=== PATIENT | female | born 1990 | race Caucasian/White ===

== ENCOUNTER 2022-04-21 23:24 | Emergency (ER) | payer BC, SELFPAY ==
[2022-04-21 23:41] VITALS: BP 145/81; PULSE 88; RESP 16; TEMP 36.1; O2SAT 95
--- NOTE | 2022-04-22 01:24 | PC.NURSE ---
No answer when called for ED room assignment.
--- NOTE | 2022-04-22 01:36 | PC.NURSE ---
No answer x 2 when called for ED room assignment. Not present in wr.
== END 2022-04-22 01:37 | disposition left against medical advice (07) ==
DX: R10.31 Right lower quadrant pain (principal)
CPT/HCPCS: 99199

== ENCOUNTER 2022-04-22 07:13 | Day surgery (SDC) | payer OTHER, SELFPAY ==
[2022-04-22] VITALS (10 sets, daily range): BP systolic 94–120; BP diastolic 45–85; PULSE 85–110; RESP 16–20; TEMP 36.9–37.1; O2SAT 94–99
--- NOTE | ~2022-04-22 | CT_ITS ---
EXAMINATION: CT abdomen pelvis w con INDICATION: Right-sided abdominal pain TECHNIQUE: Computed tomographic images of the abdomen and pelvis were obtained after the administrati on of 100 cc of Omnipaque 350 intravenous contrast. The dose-length product (DLP) was 342.08 mGy-cm. Automated exposure control and iterative reconstruction technique were employed. COMPARISON: None available FINDINGS: The lung bases are clear. The heart size is normal. The liver, spleen, pancreas, gallbladde r, and adrenal glands are normal. Hypoattenuating lesions of the left kidney measuring up to 4 mm are too small to characterize but likely represent cysts. The right kidney is unremarkable. There is an appendicolith at the base of the dilated appendix which measures up to 13 mm. There are mild edematou s stranding of the periappendiceal fat. No pathologically enlarged abdominal or pelvic lymph nodes ar e identified. There is no free intraperitoneal gas or evidence of bowel obstruction. IMPRESSION: 1. Acute appendicitis. Reviewed, dictated and finalized at location A. IMPRESSION: 1. Acute appendicitis.
--- NOTE | 2022-04-22 07:42 | ED.ABDPAIN ---
HPI - Abdominal Pain General Chief Complaint: Abdominal Pain Stated Complaint: Right Side ABD Pain Time Seen by Provider: 04/22/22 07:25 History of Present Illness HPI narrative: Patient with history of anxiety states that since yesterday she has been having some pain in her right abdomen, is gotten worse today. No nausea or vomiting, she did have some very mild diarrhea but she is not sure if that was due to anxiety. No history of any issues with her gallbladder or appendix in the past. No fevers noted. No one else sick at home. Related Data Home Medications Medication Instructions Recorded Confirmed fluoxetine 20 mg capsule (Prozac) 20 mg PO DAILY 04/22/22 Allergies Allergy/AdvReac Type Severity Reaction Status Date / Time No Known Allergies Allergy Unverified 12/25/14 11:18 Review of Systems Review of Systems: CONST: No fever. HEENT: No sore throat C/V: No chest pain RESP: No cough GI: Reports abdominal pain : No dysuria. M/S: No joint pain. SKIN: No rash. NEURO: [No headache or focal numbness or weakness] PSYCH: [No depression] [facility] Past Medical History Medical History (Updated 04/22/22 @ 13:42 by Lola Montalvo MD) Anxiety Surgical History Surgical History (Updated 04/22/22 @ 07:43 by Lola Montalvo MD) No significant past surgical history Exam Narrative: EXAMINATION OF ORGAN SYSTEMS/BODY AREAS: Constitutional: Vital signs per nursing GENERAL: Appears slightly anxious HEAD: Normal with no signs of head trauma. EYES: EOMI, conjunctiva normal ENT: Hearing grossly intact LUNGS: Nonlabored breathing. HEART: [Regular rate and rhythm] ABD: [Soft], very minimally [tender to palpation to right upper quadrant, even less tender to right lower quadrant] EXT: Normal range of motion SKIN: [No rashes or lesions.] NEURO: [Alert and oriented x 3. No gross focal sensory or strength deficits.] PSYCH: Normal affect Course Vital Signs Vital signs: Vital Signs Temperature 98.5 F 04/22/22 07:25 Pulse Rate 110 H 04/22/22 07:25 Respiratory Rate 16 04/22/22 07:25 Blood Pressure 120/85 04/22/22 07:25 Pulse Oximetry 97 04/22/22 07:25 Oxygen Delivery Room Air 04/22/22 07:25 Temperature 98.8 F 04/22/22 11:54 Pulse Rate 98 04/22/22 13:15 Respiratory Rate 20 04/22/22 13:15 Blood Pressure 97/60 L 04/22/22 13:15 Pulse Oximetry 94 04/22/22 12:50 Oxygen Delivery Room Air 04/22/22 13:15 Oxygen Flow Rate 8 04/22/22 12:20 MDM - Abdominal Pain MDM Narrative Medical decision making narrative: Electronic medical record was reviewed. Patient presented to the ED with complaint of right mid abdominal pain. Vitals notable for tachycardia. Physical exam revealed soft abdomen with some tenderness to the right side. Based on the patient's history and physical exam, my differential includes but is not limited to [gastritis, gastroenteritis, cholecystitis, pancreatitis, appendicitis]. [IV access was established by nursing staff. Patient was given morphine]. CBC, BMP, lipase, LFTs, bilirubin and alk phos were obtained. Labs were pertinent for elevated white count. [Decision was made to obtain a CT-abdomen to evaluate for acute abdominal process. CT-abdomen shows acute appendicitis]. D/w pt, general surgeon, started on abx and made NPO. Going to OR. Lab Data Result diagrams: 04/22/22 07:38 04/22/22 07:38 Labs: Lab Results 04/22/22 04/22/22 04/22/22 Range/Units 07:38 07:38 07:38 WBC 11.7 H (4.5-10.0) K/mm3 RBC 5.43 H (4.2-5.4) M/mm3 Hgb 14.8 (12.0-15.0) g/dL Hct 43.2 (37.0-47.0) % MCV 79.6 L (80-100) fl MCH 27.3 (26-34) pg MCHC 34.3 (32-36) g/dl RDW 13.5 (11.5-14.5) % Plt Count 285 (150-375) k/mm3 MPV 8.9 (7.4-10.4) fl Immature Gran % (Auto) 0.3 (0-0.5) % Neut % (Auto) 77.5 H (45.5-73.1) % Lymph % (Auto) 14.4 L (18.3-44.2) % [place] % (Auto) 7.4 (2.6-8.5) % Eos % (Auto
[2022-04-22] MEDS: MORPHINE SULFATE (*CRX) 4 MG/ML INJ 2 MG IV PUSH (07:45)
[2022-04-22 07:47] LABS: Basophils Percent Auto 0.2 % (0.2-1.2); Eosinophils Percent Auto 0.2 % (0-4.4); Hematocrit 43.2 % (37.0-47.0); Hemoglobin 14.8 g/dL (12.0-15.0); Immature Granulocyte Absolute 0.04 K/mm3 (0.00-0.031); Immature Granulocyte Percent A 0.3 % (0-0.5); Lymphocytes Absolute Auto 1.68 K/mm3 (0.9-3.2); Lymphocytes Percent Auto 14.4 % (18.3-44.2); Mean Corpuscular HGB Conc 34.3 g/dl (32-36); Mean Corpuscular Hemoglobin 27.3 pg (26-34); Mean Corpuscular Volume 79.6 fl (80-100); Mean Platelet Volume 8.9 fl (7.4-10.4); Monocytes Absolute Auto 0.9 K/mm3 (0.1-0.6); Monocytes Percent Auto 7.4 % (2.6-8.5); Neutrophils Absolute Auto 9.1 K/mm3 (1.3-6.7); Neutrophils Percent Auto 77.5 % (45.5-73.1); Platelet Count Result 285 k/mm3 (150-375); Red Blood Count 5.43 M/mm3 (4.2-5.4); Red Cell Distribution Width 13.5 % (11.5-14.5); White Blood Count 11.7 K/mm3 (4.5-10.0)
[2022-04-22 07:54] LABS: Add Urine Microscopic? YES; Appearance Urine Clear (Clear); Bacteria Urine Trace /hpf; Bilirubin Urine Negative (Negative); Blood Urine 3+ (Negative); Color Urine Yellow (Yellow); Glucose Urine UA Negative (Negative); Ketones Urine 2+ mg/dL (Negative); Leukocyte Esterase Ur Negative LEU/UL (Negative); Mucus Urine Few /lpf; Nitrate Urine Negative (Negative); Protein Urine 1+ mg/dL (Negative); Squamous Epithelial Cell Urine Occasional /hpf (Few); Urobilinogen Urine Negative mg/dL (<2.0); WBC Urine 0-3 /hpf
[2022-04-22 07:58] LABS: Alanine Aminotransferase 23 U/L (6-35); Albumin Level 5.2 g/dL (3.5-5.1); Alkaline Phosphatase 112 U/L (38-126); Anion Gap 16 mmol/L (8-16); Aspartate Amino Transferase 28 U/L (14-36); Bilirubin,Total 1.3 mg/dL (0.2-1.3); Blood Urea Nitrogen 11 mg/dL (7-17); Calcium 9.6 mg/dL (8.4-10.2); Carbon Dioxide 23 mmol/L (22-30); Chloride 98 mmol/L (98-107); Estimated CRCL calculation 62 ml/min; Estimated Glomerular Filt Rate > 60; Glucose 116 mg/dL (65-110); Lipase 45 U/L (23-300); Potassium 3.7 mmol/L (3.4-5.0); Sodium 137 mmol/L (137-145)
[2022-04-22] MEDS: LACTATED RINGERS 1,000 ML 999 ML IV CONT (09:17)
[2022-04-22] MEDS: metroNIDAZOLE 500 MG/ISO 100ML 500 MG/100 ML BAG 100 MG IVPB (09:52)
--- NOTE | 2022-04-22 10:16 | PM.SD2 ---
Same Day Admit/Disch: HPI History of Present Illness Chief complaint: Right Side ABD Pain Narrative: Ivette Torres is a 31 year old female who began having abdominal pain yesterday. Pain got worse and moved to the right lower quadrant. It was pretty severe and she decided to come to the emergency room. She was noted to have an elevated white count and tenderness both in the right upper quadrant and in the right lower quadrant. CT scan of the abdomen pelvis showed a 1.3 cm appendix that was associated with periappendiceal stranding and had a proximal appendicoliths. Patient seen now for management of her right lower quadrant pain and abnormal findings on CT scan. [facility] Past Medical History Medical History (Updated 04/22/22 @ 10:24 by Kyle Levine MD) Anxiety Surgical History Surgical History (Updated 04/22/22 @ 07:43 by Lola Montalvo MD) No significant past surgical history Same Day Admit/Disch: Med Pre-admit Medications Home Medications Medication Instructions Recorded Confirmed Type fluoxetine 20 mg capsule (Prozac) 20 mg PO DAILY 04/22/22 History hydrocodone 5 mg-acetaminophen 325 1 - 2 tablet PO Q6H PRN pain #7 04/22/22 Rx mg tablet tabs ketorolac 10 mg tablet 10 mg PO Q6H 4 days #16 tabs 04/22/22 Rx Exam Const: General: comfortable, no acute distress, alert and awake HENMT: Head: normocephalic and atraumatic Mouth: Yes Normal oral and palatal mucosa present Eyes: Conjunctivae: conjunctivae normal Pupils: Equal, round and reactive pupils present EOM: EOMs intact bilaterally Neck: Neck: normal visual inspection, no lymphadenopathy and nontender Resp: Effort & Inspection: normal respiratory effort Auscultation: clear to auscultation bilaterally Cardio: Rate: regular rate Rhythm: regular rhythm Heart sounds: no gallops, no murmurs and no rubs GI: Inspection: normal to inspection, non-distended, scaphoid and no visible herniation GI Palp: Yes Soft to palpation, Yes Tenderness to palpation present (GI) (Right side of the abdomen mostly right lower quadrant with guarding), Yes Guarding due to palpation present (GI), No Hepatomegaly present, No Splenomegaly present, No Hernia present, No Palpable mass present and No Ascites present Auscultation: normal bowel sounds Skin: General skin exam: other (hirsuit) Lesions: no lesions Rashes: no rashes Neuro: General: no focal motor deficits and CN's II-XI intact bilaterally Cranial nerves: Yes Equal, round and reactive pupils present, Yes Bilaterally intact EOM present, Yes facial symmetry and Yes Midline tongue present Speech: normal speech Motor exam (neuro): 5/5 motor strength present throughout and Motor abnormalities not present Extrem: General: no clubbing, cyanosis or edema and edema Psych: Affect: normal affect Thought process: Normal thought process present Insight: Good insight present (Psych) DS: Data Data Completed and Pending Labs on day of discharge: Labs from last 24 hours 04/22/22 04/22/22 04/22/22 07:38 07:38 07:38 WBC 11.7 H RBC 5.43 H Hgb 14.8 Hct 43.2 MCV 79.6 L MCH 27.3 MCHC 34.3 RDW 13.5 Plt Count 285 MPV 8.9 Immature Gran % (Auto) 0.3 Neut % (Auto) 77.5 H Lymph % (Auto) 14.4 L [place] % (Auto) 7.4 Eos % (Auto) 0.2 Baso % (Auto) 0.2 Lymph # (Auto) 1.68 [place] # (Auto) 0.9 H Eos # (Auto) 0.0 Baso # (Auto) 0.0 Abs Immat Gran (auto) 0.04 H Absolute Neuts (auto) 9.1 H Absolute Nucleated RBC 0.0 Nucleated RBC % 0.0 Sodium 137 Potassium 3.7 Chloride 98 Carbon Dioxide 23 Anion Gap 16 BUN 11 Creatinine 0.90 Estim Creat Clear Calc 62 Estimated GFR > 60 Glucose 116 H Calcium 9.6 Total Bilirubin 1.3 AST 28 ALT 23 Alkaline Phosphatase 112 Total Protein 9.0 H Albumin 5.2 H Lipase 45 Urine Color Yellow Urine Appearance Clear Urine pH 5.0 Ur Specific [place] 1.030 Ur
--- NOTE | 2022-04-22 10:24 | WPDHPUPDATE1 ---
History and Physical Update Update Date/Time: 04/22/22 10:24 History and Physical has been reviewed, including an updated exam of the patient. There are NO changes in the patient's condition. Risks, benefits, and alternatives have been discussed and questions answered. Patient agrees to proceed with procedure.
--- NOTE | 2022-04-22 10:28 | WPDANESEPPF ---
Anes - Initial Pre Proc Eval Procedure: Operation Date: 04/22/22 10:30 Proposed Procedures p Laparoscopic Appendectomy - Kyle Levine MD Date/Time: 04/22/22 10:28 Pre Op Diagnosis: Right Side ABD Pain Patient Data Age: 31 Gender: F Height: 1.57 m Weight: 61 kg Last Vital Signs Temp 36.9 C 04/22/22 07:25 Pulse 110 H 04/22/22 07:25 Resp 16 04/22/22 07:25 BP 120/85 04/22/22 07:25 Pulse Ox 97 04/22/22 07:25 O2 Del Method Room Air 04/22/22 07:25 Allergies Allergy/AdvReac Type Severity Reaction Status Date / Time No Known Allergies Allergy Unverified 12/25/14 11:18 Home Medications Medication Instructions Recorded Confirmed Type fluoxetine 20 mg capsule (Prozac) 20 mg PO DAILY 04/22/22 History hydrocodone 5 mg-acetaminophen 325 1 - 2 tablet PO Q6H PRN pain #7 04/22/22 Rx mg tablet tabs ketorolac 10 mg tablet 10 mg PO Q6H 4 days #16 tabs 04/22/22 Rx Laboratory Tests 04/22/22 04/22/22 04/22/22 07:38 07:38 07:38 WBC 11.7 K/mm3 H K/mm3 (4.5-10.0) RBC 5.43 M/mm3 H M/mm3 (4.2-5.4) Hgb 14.8 g/dL g/dL (12.0-15.0) Hct 43.2 % % (37.0-47.0) MCV 79.6 fl L fl (80-100) MCH 27.3 pg pg (26-34) MCHC 34.3 g/dl g/dl (32-36) RDW 13.5 % % (11.5-14.5) Plt Count 285 k/mm3 k/mm3 (150-375) MPV 8.9 fl fl (7.4-10.4) Immature Gran % (Auto) 0.3 % % (0-0.5) Neut % (Auto) 77.5 % H % (45.5-73.1) Lymph % (Auto) 14.4 % L % (18.3-44.2) [place] % (Auto) 7.4 % % (2.6-8.5) Eos % (Auto) 0.2 % % (0-4.4) Baso % (Auto) 0.2 % % (0.2-1.2) Lymph # (Auto) 1.68 K/mm3 K/mm3 (0.9-3.2) [place] # (Auto) 0.9 K/mm3 H K/mm3 (0.1-0.6) Eos # (Auto) 0.0 K/mm3 K/mm3 (0-0.3) Baso # (Auto) 0.0 K/mm3 K/mm3 (0.0-0.1) Abs Immat Gran (auto) 0.04 K/mm3 H K/mm3 (0.00-0.031) Absolute Neuts (auto) 9.1 K/mm3 H K/mm3 (1.3-6.7) Absolute Nucleated RBC 0.0 K/mm3 K/mm3 (0.0-0.012) Nucleated RBC % 0.0 % % (0.0-0.2) Sodium 137 mmol/L mmol/L (137-145) Potassium 3.7 mmol/L mmol/L (3.4-5.0) Chloride 98 mmol/L mmol/L (98-107) Carbon Dioxide 23 mmol/L mmol/L (22-30) Anion Gap 16 mmol/L mmol/L (8-16) BUN 11 mg/dL mg/dL (7-17) Creatinine 0.90 mg/dL mg/dL (0.7-1.0) Estim Creat Clear Calc 62 ml/min ml/min Estimated GFR > 60 (59 - ) Glucose 116 mg/dL H mg/dL (65-110) Calcium 9.6 mg/dL mg/dL (8.4-10.2) Total Bilirubin 1.3 mg/dL mg/dL (0.2-1.3) AST 28 U/L U/L (14-36) ALT 23 U/L U/L (6-35) Alkaline Phosphatase 112 U/L U/L (38-126) Total Protein 9.0 g/dL H g/dL (6.3-8.2) Albumin 5.2 g/dL H g/dL (3.5-5.1) Lipase 45 U/L U/L (23-300) Urine Color Yellow (Yellow) Urine Appearance Clear (Clear) Urine pH 5.0 (5.0-9.0) Ur Specific [place] 1.030 (1.001-1.035) Urine Protein 1+ mg/dL H mg/dL (Negative) Urine Glucose (UA) Negative mg/dL mg/dL (Negative) Urine Ketones 2+ mg/dL H mg/dL (Negative) Ur Blood (Man) 3+ H (Negative) Urine Nitrate Negative (Negative) Urine Bilirubin Negative (Negative) Urine Urobilinogen Negative mg/dL mg/dL (<2.0) Leukocyte Esterase Rfl Negative KAYLA/UL KAYLA/UL (Negative) Urine RBC 3-5 /hpf H /hpf (0-2) Urine WBC 0-3 /hpf /hpf Ur Squamous Epith Cells Occasional /hpf /hpf (Few) Urine Bacteria Trace /hpf /hpf Urine Mucus Few /lpf H /lpf Patient hx anesthesia problems: none Family hx anesthesia problems: none Results Review: All pre-operative results
[2022-04-22] MEDS: MORPHINE SULFATE (*CRX) 4 MG/ML INJ IV PUSH (10:31)
--- NOTE | 2022-04-22 10:45 | PC.NURSE ---
dr mccabe at bedside.
[2022-04-22] MEDS: ceFAZolin 2 GM/D5W 50 ML 2 GM/50 ML BAG IVPB (10:55)
--- NOTE | 2022-04-22 10:55 | PC.NURSE ---
preop consent signed by pt.
--- NOTE | 2022-04-22 10:58 | W.PM.PROC2 ---
Procedure Note - Detailed Date of Procedure 04/22/22 Pre-op Diagnosis acute appendicitis Post-op Diagnosis Same Procedure Performed laparoscopic appendectomy Surgeon Kyle Levine MD Drawing In Machine Tender Helper Zuleima ORTIZ Anesthesia General and Local ( 0.25% Marcaine with epinephrine) Indications patient and mid abdominal pain that moved to the right lower quadrant starting yesterday. Pain got worse and she came to the emergency room. She was noted to have leukocytosis and right-sided abdominal pain. She was very tender in the right lower quadrant. CT scan of the abdomen pelvis showed acute appendicitis with appendicolith. Findings Acute non perforated appendicitis Description of Procedure patient was taken to surgery and induced into general anesthesia. The abdomen is prepped and draped. Trocars were placed in usual fashion using applied Medical optical trocars and local anesthetic. A 5 mm camera was used. The patient was placed in Trendelenburg with the right-side elevated. The appendix was found without difficulty. We freed the appendix from inflammatory adhesions and elevated it anteriorly. The mesoappendix was exposed. Dissection was carried out in the mesoappendix cauterizing the vessels of the mesoappendix. The appendiceal artery was dissected and was then thoroughly cauterized and divided. We continued dissection and eventually skeletonized the base of the appendix. I then used a Vicryl endoloop to ligate the appendix at its base. The appendix was amputated just above the ligature. The mucosa of the appendiceal stump was cauterized. The appendix was immediately placed in an Endo-Catch bag retrieved through the 10 11 left lower quadrant trocar site. We replaced the trocar and reviewed the areas of dissection as well as the appendiceal stump. All looked good with no evidence of bleeding or other issues. The 10 11 trocar site was closed at the fascial level with a Zacarias cone an 0 Vicryl suture. We then evacuated CO2 and removed the trocar sleeves. Skin wounds were closed with subcuticular 4-0 Monocryl skin suture. The wounds were dressed with Exofin surgical adhesive. The patient was awakened and taken to recovery in good condition. Sponge and needle counts were correct x2. Estimated Blood Loss -5 Drains No Packing No Pathology Yes ( Appendix) Complications No immediate complications Condition Stable Disposition PACU [facility] Billing Surgery - Charge Forward: Surgery Billing ( laparoscopic appendectomy)
[2022-04-22] MEDS: BUPIVACAINE/EPINEPHRINE 0.25% 50 ML VIAL 20 ML INFILTRATE (11:14)
[2022-04-22] MEDS: LACTATED RINGERS 1,000 ML 30 ML IV CONT (11:54)
== END 2022-04-22 14:27 | disposition home or self-care (01) ==
LOC: ANHED 07:56 → ANHSURGERY 10:33
PROVIDERS: Emergency Provider Emergency Medicine; Visit Provider Surgery
PROC: 0DTJ4ZZ Resection of Appendix, Percutaneous Endoscopic Approach (ICD-10-PCS; CPT 44970; principal; 2022-04-22 10:30)
DX: K35.80 Unspecified acute appendicitis (principal)
CPT/HCPCS: 44970; 36415; 74177; 80053; 81001; 81025; 83690; 85025; 88304; J0330; J0690; J1100; J2250; J2270; J2405; J2704; J3010; J7030; J7120; Q9967

== ENCOUNTER 2022-07-26 11:33 | Emergency (ER) | payer OTHER, SELFPAY ==
[2022-07-26 12:07] VITALS: BP 101/76; PULSE 107; RESP 20; TEMP 36.7; O2SAT 98
--- NOTE | 2022-07-26 12:16 | ED.URI ---
HPI - URI/Sore Throat General Chief Complaint: Upper Respiratory Infection Stated Complaint: sorethroat,congestion Time Seen by Provider: 07/26/22 12:16 Source: patient Mode of arrival: ambulatory Limitations: no limitations History of Present Illness HPI Narrative: 32 Year old female presents with complaint of nasal congestion, headache, cough, sore throat for 4 days. denies fever chills. Positive fatigue. Taking DayQuil NyQuil cold and flu to treat symptoms. States sore throat getting progressively worse. Denies nausea vomiting diarrhea. All systems reviewed and negative except as noted above. Related Data Home Medications Medication Instructions Recorded Confirmed fluoxetine 20 mg capsule (Prozac) 20 mg PO DAILY 04/22/22 05/15/22 Allergies Allergy/AdvReac Type Severity Reaction Status Date / Time No Known Allergies Allergy Verified 05/15/22 14:21 Review of Systems Review of Systems: CONSTITUTIONAL: Denies fever, chills, or sweats. reports fatigue. EYES: Denies visual changes, redness, or discharge. ENT: Reports rhinorrhea, congestion, sore throat. Denies otalgia. CARDIOVASCULAR: Denies chest pain, palpitations, or edema. RESPIRATORY: reports cough. Denies dyspnea. GASTROINTESTINAL: Denies abdominal pain, nausea, vomiting, or diarrhea. GENITOURINARY: Denies dysuria or hematuria. SKIN: Denies rash or itching. MUSCULOSKELETAL: Denies back pain, joint pain, or myalgia. NEUROLOGIC: Denies headache, numbness, or weakness. PSYCHIATRIC: Denies anxiety or depression. All other systems reviewed are negative, except as documented in HPI. PMFSH Past Medical History Medical History Anxiety Surgical History Surgical History No significant past surgical history S/P laparoscopic appendectomy 04/22/22 Social History Social History Smoking status: Never smoker Comments At time of signature, agree with nursing past medical, surgical, social and family history. There is no relevant family history pertinent to the presenting complaint. Exam Narrative: GENERAL: This is a well-nourished, well-developed patient, in no apparent distress. HEAD: normocephalic, atraumatic. EYES: PERRL. Sclera clear/white. Vision is grossly intact. EARS: External ears normal, auditory canals clear and without drainage, TMs normal without perforation. Hearing grossly intact. NOSE: External nose normal with Clear nasal drainage, mild congestion THROAT: Mucous membranes moist, posterior pharynx erythematous. Mild swelling. No exudates. NECK: Neck supple, non-tender without lymphadenopathy, masses or thyromegaly. CARDIOVASCULAR: Regular rate and rhythm without murmurs, gallops, or rubs. RESPIRATORY: Clear to auscultation. Breath sounds equal bilaterally. No wheezes, rales, or rhonchi. SKIN: warm, Dry, intact with no suspicious lesions or rash, good texture and turgor. NEURO: awake, alert, and oriented to person, place and time. There were no obvious focal neurologic abnormalities. EXTREMITIES: No joint tenderness, effusion, or edema noted. Course Course Level of Care: Express Care Visit Vital Signs Vital signs: Vital Signs Temperature 36.7 C 07/26/22 12:07 Pulse Rate 107 H 07/26/22 12:07 Respiratory Rate 20 07/26/22 12:07 Blood Pressure 101/76 07/26/22 12:07 Pulse Oximetry 98 07/26/22 12:07 Oxygen Delivery Room Air 07/26/22 12:07 Temperature 36.7 C 07/26/22 12:07 Pulse Rate 107 H 07/26/22 12:07 Respiratory Rate 20 07/26/22 12:07 Blood Pressure 101/76 07/26/22 12:07 Pulse Oximetry 98 07/26/22 12:07 Oxygen Delivery Room Air 07/26/22 12:07 Reviewed MDM - URI/Sore Throat MDM Narrative Medical decision making narrative: Patient is aware of diagnosis, understands and agrees to treatment plan. Anticipato
== END 2022-07-26 12:32 | disposition home or self-care (01) ==
PROVIDERS: Emergency Provider Nurse Practitioner Family; PCP Physician Assistant
DX: U07.1 COVID-19 (principal); F41.9 Anxiety disorder, unspecified
CPT/HCPCS: 87081; 87426; 87880; 99213; C9803; G0463

== ENCOUNTER 2023-02-27 08:49 | Emergency (ER) | payer BC, SELFPAY ==
--- NOTE | 2023-02-27 09:05 | ED.URI ---
HPI - URI/Sore Throat General Chief Complaint: Upper Respiratory Infection Stated Complaint: sorethroat Source: patient and RN notes reviewed History of Present Illness HPI Narrative: 32 yo F presents to urgent care with sore throat since last night. Pt denies any fevers, chills, N/V/D, chest pain, SOB, congestion, or ear pain. PT took Dayquil today with good relief. Related Data Home Medications Medication Instructions Recorded Confirmed fluoxetine 20 mg capsule (Prozac) 40 mg PO DAILY 04/22/22 02/27/23 famotidine 20 mg tablet 20 mg PO DAILY 02/27/23 02/27/23 Allergies Allergy/AdvReac Type Severity Reaction Status Date / Time No Known Allergies Allergy Verified 02/27/23 09:11 Review of Systems Review of Systems: CONSTITUTIONAL: Denies fever, chills, or sweats. EYES: Denies visual changes, redness, or discharge. ENT: sore throat CARDIOVASCULAR: Denies chest pain, palpitations, or edema. RESPIRATORY: Denies cough or dyspnea. GASTROINTESTINAL: Denies abdominal pain, nausea, vomiting, or diarrhea. GENITOURINARY: Denies dysuria or hematuria. SKIN: Denies rash or itching. MUSCULOSKELETAL: Denies back pain, joint pain, or myalgia. NEUROLOGIC: Denies headache, numbness, or weakness. Pertinent positives per HPI. PMFSH Past Medical History Medical History Anxiety Surgical History Surgical History No significant past surgical history S/P laparoscopic appendectomy 04/22/22 Social History Social History Smoking status: Never smoker Comments At the time of my signature, I reviewed and agree with the nursing past medical, surgical, social, and family history. There is no relevant family history pertinent to the patient complaint. Exam Narrative: GENERAL: This is a well-nourished, well-developed patient, in no apparent distress. HEAD: normocephalic, atraumatic. EYES: Sclera clear/white. Vision is grossly intact. EARS: External ears normal, auditory canals clear and without drainage, TMs normal without perforation. Hearing grossly intact. NOSE: External nose normal with no obvious nasal discharge, nares without redness, no rhinorrhea. THROAT: Mucous membranes moist, posterior pharynx erythemic. NECK: Neck supple, non-tender without lymphadenopathy, masses or thyromegaly. CARDIOVASCULAR: Regular rate and rhythm without murmurs, gallops, or rubs. RESPIRATORY: Clear to auscultation. Breath sounds equal bilaterally. No wheezes, rales, or rhonchi. GASTROINTESTINAL: Abdomen soft, non-tender, nondistended. Bowel sounds are active. No hepato-splenomegaly, or palpable masses. No guarding. SKIN: warm, intact with no suspicious lesions or rash, good texture and turgor. NEURO: awake, alert, and oriented to person, place and time. There were no obvious focal neurologic abnormalities. Course Course Level of Care: Express Care Visit Vital Signs Vital signs: Vital Signs Temperature 97.4 F L 02/27/23 09:12 Pulse Rate 90 02/27/23 09:12 Respiratory Rate 18 02/27/23 09:12 Blood Pressure 105/67 02/27/23 09:12 Pulse Oximetry 100 02/27/23 09:12 Oxygen Delivery Room Air 02/27/23 09:12 Temperature 97.4 F L 02/27/23 09:12 Pulse Rate 90 02/27/23 09:12 Respiratory Rate 18 02/27/23 09:12 Blood Pressure 105/67 02/27/23 09:12 Pulse Oximetry 100 02/27/23 09:12 Oxygen Delivery Room Air 02/27/23 09:12 reviewed MDM - URI/Sore Throat MDM Narrative Medical decision making narrative: Rapid strep is negative in the office; however we will send to the lab for confirmation; there is a small percentage chance that it can come back positive; if it is, we will call you in 2-3days; and your prescription will be call in to your pharmacy. However, there is NO indication for antibiotic at this time. -Increase your fluid
[2023-02-27 09:12] VITALS: BP 105/67; PULSE 90; RESP 18; TEMP 36.3; O2SAT 100
== END 2023-02-27 09:37 | disposition home or self-care (01) ==
PROVIDERS: Emergency Provider Nurse Practitioner Family; PCP Physician Assistant
DX: J02.9 Acute pharyngitis, unspecified (principal); F41.9 Anxiety disorder, unspecified
CPT/HCPCS: 87081; 87880; 99213; G0463